=== PATIENT | female | born 1980 | race Two or more races ===

== ENCOUNTER → 2021-11-27 | Day surgery (SDC) | payer OTHER | END | disposition home or self-care (01) | LOC: JRADUS-SUR 09:18 → MERGE 09:18 | PROVIDERS: ATTEND Student in an Organized Health Care Education/Training Program | PROC: BU18YZZ Fluoroscopy of Uterus and Fallopian Tubes using Other Contrast (ICD-10-PCS; principal; 2021-11-27) | DX: N97.9 Female infertility, unspecified (principal) | CPT/HCPCS: 58340; 74740-TC-FY; 76000-TC-FY; 84703 ==